=== PATIENT | male | born 1990 | race Hispanic/Latino ===

== ENCOUNTER 2017-01-08 17:33 | Emergency (ER) | payer BC, OTHER ==
[2017-01-08 17:54] VITALS: RESP 16; TEMP 97.5; BMI 32.5
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
--- NOTE | 2017-01-08 18:32 | RAD ---
PROCEDURE: Right Hand Radiographs. HISTORY: R hand wound after dog bite COMPARISON: None. FINDINGS: BONES: There is an old volar plate avulsion fracture in the middle finger. Bone alignment and mineralization are normal. There is no acute fracture JOINTS: Normal. SOFT TISSUES: The soft tissues are normal. No radiopaque foreign body. OTHER FINDINGS: None. IMPRESSION: No radiopaque foreign body. No acute fracture.
--- NOTE | 2017-01-08 18:39 | RAD ---
HISTORY: COMPARISON: 02/06/2015 TECHNIQUE: Chest PA and lateral FINDINGS: LINES AND TUBES: None. LUNG AND PLEURA: The lungs are well inflated and clear. HEART AND MEDIASTINUM: The heart is not enlarged. The hilar and mediastinal contours are within normal limits. SKELETAL STRUCTURES: The bony structures are within normal limits for the patient's age. VISUALIZED UPPER ABDOMEN: Normal. OTHER FINDINGS: None. IMPRESSION: No active pulmonary disease.
[2017-01-08] MEDS: Amoxicillin-Clav 875-125 mg Tab PO STA ×2 (18:52→19:03)
[2017-01-08 19:48] LABS: URINE BILIRUBIN NEGATIVE (NEGATIVE); URINE BLOOD NEGATIVE (NEGATIVE); URINE GLUCOSE (UA) NEGATIVE (NEGATIVE); URINE LEUKOCYTE ESTERASE NEGATIVE Leu/uL (NEGATIVE); URINE NITRATE NEGATIVE (NEGATIVE); URINE PROTEIN NEGATIVE mg/dL (<30 mg/dL); URINE UROBILINOGEN 0.2 E.U./dL (<1 E.U./dL)
[2017-01-08 20:05] LABS: URINE APPEARANCE CLEAR (CLEAR); URINE COLOR YELLOW (YELLOW)
[2017-01-08 20:31] LABS: BARBITURATES, UR NEGATIVE (NEGATIVE); BENZODIAZEPINES, UR POSITIVE (NEGATIVE); OPIATES, UR NEGATIVE (NEGATIVE); PHENCYCLIDINE, UR POSITIVE (NEGATIVE)
[2017-01-08] MEDS ORDERED: Oxycodone/Acetaminophen 5/325 mg Tab PO STA (21:33)
[2017-01-08] MEDS ORDERED: Oxycodone/Acetaminophen 5/325 mg Tab ONE (21:36)
--- NOTE | 2017-01-08 21:51 | ED PDOC ---
Physical Exam Vital Signs Reviewed: Yes Vital Signs Temp Pulse Resp BP Pulse Ox 01/08/17 20:17 85 16 145/79 96 01/08/17 17:50 97.5 F L 73 16 133/84 96 Temperature: Afebrile Blood Pressure: Normal Pulse: Regular Respiratory Rate: Normal Pain Distress: None Medical Decision Making ED Course and Treatment: 01/08/17 19:00 Case endorsed to me by Dr. Doan, pending [facility] [place], urinalysis, and labs. 01/09/17 02:55 Pt seen and evaluated by [facility], who state pt does not require admission. 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 Pt stable for d/c. Pt medically and psychiatrically cleared for incarceration. - Lab Interpretations Lab Results: 01/08/17 21:45 01/08/17 21:45 Lab Results 01/08/17 21:45: Salicylates < 1 L, Acetaminophen < 10.0 L 01/08/17 21:45: Alcohol, Quantitative < 10 01/08/17 21:45: Sodium 137, Potassium 4.1, Chloride 103, Carbon Dioxide 25, Anion Gap 13, BUN 16, Creatinine 1.0, Est GFR ( Amer) > 60, Est GFR (Non- Af Amer) > 60, Random Glucose 109, Calcium 8.9, Total Bilirubin 0.8, AST 119 H, ALT 69 H, Alkaline Phosphatase 53, Total Protein 6.8, Albumin 4.3, Globulin 2.5 , Albumin/Globulin Ratio 1.7 01/08/17 21:45: WBC 12.8 H D, RBC 4.66, Hgb 13.3 L, Hct 37.9 L, MCV 81.3, MCH 28.5, MCHC 35.1, RDW 13.1, Plt Count 207, MPV 9.6, Gran % 51.9, Lymph % (Auto) 37.6 H, [place] % (Auto) 8.9 H, Eos % (Auto) 1.3 L, Baso % (Auto) 0.3, Gran # 6.63 H, Lymph # 4.8 H, [place] # 1.1 H, Eos # 0.2, Baso # 0.04 01/08/17 19:50: Urine Opiates Screen Negative, Urine Methadone Screen Negative, Ur Barbiturates Screen Negative, Ur Phencyclidine Scrn Positive H, Ur Amphetamines Screen Negative, U Benzodiazepines Scrn Positive H, U Oth Cocaine Metabols Positive H, U Cannabinoids Screen Positive H 01/08/17 18:32: Urine Color Yellow, Urine Appearance Clear, Urine pH 6.0, Ur Specific [place] 1.025, Urine Protein Negative, Urine Glucose (UA) Negative, Urine Ketones Negative, Urine Blood Negative, Urine Nitrate Negative, Urine Bilirubin Negative, Urine Urobilinogen 0.2, Ur Leukocyte Esterase Negative I have reviewed the lab results: Yes - RAD Interpretation Radiology Orders: 01/08/17 18:06 CHEST TWO VIEWS (PA/LAT) [RAD] Stat HAND RIGHT 3 VIEWS [RAD] Stat - Medication Orders Current Medication Orders: Discontinued Medications Acetaminophen (Tylenol 325mg Tab) 650 mg PO STAT STA Stop: 01/08/17 18:07 Last Admin: 01/08/17 19:03 Dose: Not Given Non-Admin Reason: Patient Refused Amoxicillin/Clavulanate Potassium (Augmentin 875 Mg-125 Mg Tab) 1 tab PO STAT STA PRN Reason: Protocol Stop: 01/08/17 18:07 Last Admin: 01/08/17 19:03 Dose: Not Given Non-Admin Reason: Patient Refused Lorazepam (Ativan) 1 mg PO ONCE ONE PRN Reason: Protocol Stop: 01/08/17 21:33 Last Admin: 01/08/17 21:38 Dose: 1 mg Oxycodone/Acetaminophen (Percocet 5/325 Mg Tab) 1 tab PO STAT STA Stop: 01/08/17 21:34 Last Admin: 01/08/17 21:42 Dose: 1 tab Oxycodone/Acetaminophen (Percocet 5/325 Mg Tab) Confirm Administered Dose 1 tab .ROUTE .STK-MED ONE Stop: 01/08/17 21:37 Disposition/Present on Arrival - Present on Arrival Any Indicators Present on Arrival: No History of DVT/PE: No History of Uncontrolled Diabetes: No Urinary Catheter: No History of Decub. Ulcer: No History Surgical Site Infection Following: Orthopedic Procedures, None - Disposition Have Diagnosis and Disposition been Completed?: Yes Diagnosis: Bipolar disorder Disposition: RELEASED IN [employer] Disposition Time: 03:30 Condition: FAIR Additional Instructions: pt is medically and psychologically cleared for incarceration Prescriptions: Amoxicillin/Clavulanate [Augmentin 875 MG-125 MG] 1 tab PO BID #20 tab Referrals: Vince Patel MD [Primary Care Provider] - Follow up with primary Forms: [employer] (Greenlandic)
[2017-01-08 22:05] LABS: BASO # 0.04 K/mm3 (0.0-2.0); BASO % 0.3 % (0.0-3.0); EOS # 0.2 (0.0-0.7); EOS % 1.3 % (1.5-5.0); GRAN # 6.63 (1.4-6.5); GRAN % 51.9 % (50.0-68.0); HEMOGLOBIN 13.3 g/dL (14.0-18.0); LYMPH # 4.8 (1.2-3.4); LYMPH % 37.6 % (22.0-35.0); MEAN CELL VOLUME 81.3 fl (80.0-105.0); MEAN CORPUSCULAR HEMOGLOBIN 28.5 pg (25.0-35.0); MEAN CORPUSCULAR HGB CONC 35.1 g/dl (31.0-37.0); MEAN PLATELET VOLUME 9.6 fl (7.0-11.0); MONO # 1.1 (0.1-0.6); MONO % 8.9 % (1.0-6.0); PLATELET COUNT 207 10^3/uL (120.0-450.0); RBC 4.66 10^6/uL (3.5-6.1); RED CELL DISTRIBUTION WIDTH 13.1 % (11.5-14.5); WHITE BLOOD COUNT 12.8 10^3/ul (4.5-11.0)
[2017-01-08 22:35] LABS: ALB/GLOB RATIO 1.7 (1.1-1.8); ALBUMIN 4.3 g/dL (3.0-4.8); ALT/SGPT 69 U/L (7-56); AST/SGOT 119 U/L (15-59); BLOOD UREA NITROGEN 16 mg/dL (7-21); CALCIUM 8.9 mg/dL (8.4-10.5); GFR AFRICAN-AMERICAN > 60; GFR NON-AFRICAN AMERICAN > 60
[2017-01-08 22:36] LABS: SALICYLATE < 1 mg/dL (2.0-20.0)
[2017-01-08 22:37] LABS: ACETAMINOPHEN < 10.0 ug/ml (10.0-20.0)
[2017-01-09 03:39] VITALS: BP 137/56; PULSE 70; O2SAT 100
--- NOTE | 2017-01-09 11:49 | CARD ---
APPROVED REPORT EKG Measurement Heart [id number] <Conclusion> Sinus bradycardia with sinus arrhythmia Small Q 2,3,AVF, Probably Non Significant.
== END 2017-01-09 03:41 ==
LOC: ED 17:33
DX: S61.451A Open bite of right hand, initial encounter (principal); W54.0XXA Bitten by dog, initial encounter; Y93.9 Activity, unspecified; Y92.9 Unspecified place or not applicable; F31.9 Bipolar disorder, unspecified; I10 Essential (primary) hypertension; F17.210 Nicotine dependence, cigarettes, uncomplicated; Z65.3 Problems related to other legal circumstances